=== PATIENT | female | born 1970 | race Caucasian/White ===

== ENCOUNTER 2018-06-19 06:42 | Inpatient (IN) ==
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
[2018-06-19] MEDS ORDERED: Ringers Solution, Lactated 1,000 ML IVC SCH (07:15)
[2018-06-19] MEDS ORDERED: Dexamethasone 4 MG/ML VIAL ONE (07:22)
[2018-06-19] MEDS ORDERED: *HR* Midazolam HCl 2 MG/2 ML VIAL ONE (07:22)
[2018-06-19] MEDS ORDERED: Neostigmine Methylsulfate 3 MG/3 ML SYRINGE ONE (07:22)
[2018-06-19] MEDS ORDERED: *HR* Propofol 200 MG/20 ML VIAL IVP ONE ×2 (07:22→10:42)
[2018-06-19] MEDS ORDERED: Lidocaine -MPF 4% 5 ML AMPUL ONE (07:22)
[2018-06-19] MEDS ORDERED: Lidocaine -MPF 2% 2 ML VIAL ONE (07:22)
[2018-06-19] MEDS ORDERED: *HR* Succinylcholine 200 MG/10 ML VIAL IVP ONE (07:22)
[2018-06-19] MEDS ORDERED: *HR* FentaNYL (PF) 100 MCG/2 ML VIAL ONE (07:22)
[2018-06-19] MEDS ORDERED: Ondansetron 4 MG/2 ML VIAL ONE (07:22)
[2018-06-19] MEDS ORDERED: *HR* Rocuronium Bromide 50 MG/5 ML VIAL ONE ×2 (07:24→09:37)
--- NOTE | 2018-06-19 07:27 | History & Physical Report ---
Date of Encounter: 06/19/18 Time of Encounter: 07:20 24 Hour HP Update - Instructions Instructions: If the History and Physical is less than 30 days old and was completed prior to A.M. admission and or procedure and has NOT been updated on calendar day of procedure please complete this update prior to performing procedure. - Update Patient reports changes in Medical Condition: No Changes in examination, assessment, or condition: No Changes in Medication: No Preop tests/diagnostics Reviewed: Yes Surgery Remains Indicated: Yes Consent for Planned Operative Procedure(s) Verified: Yes - Pre-Operative Checklist Preoperative Checklist Indicated: Yes Prophylactic Antibiotic Ordered: Yes Home Medications Include Beta Broderick: No Beta Broderick Taken Today (Day of Surgery): No Beta Broderick Taken Yesterday (Day Prior to Surgery): No Is VTE Prophylaxis Indicated?: Yes
[2018-06-19] MEDS ORDERED: *HR* Morphine Sulfate/PF 10 MG/10 ML AMPUL ONE (07:38)
[2018-06-19] MEDS ORDERED: Bupivacaine-MPF 0.25% 10 ML VIAL ONE ×4 (07:39→11:42)
[2018-06-19] MEDS ORDERED: *HR* PHENYLEPHRINE 1,000 MCG/10 ML SYRINGE IVP ONE (07:45)
[2018-06-19] MEDS ORDERED: Ertapenem 1,000 MG in 0.9 % Sodium Chloride Mini Bag 100 ML IVPB ONE (08:00)
--- NOTE | 2018-06-19 09:12 | Anesthesia Procedures ---
Date of Encounter: 06/19/18 Time of Encounter: 08:15 Procedures: Anesthesia - Epidural/Spinal Patient ID/Chart reviewed: Yes Patient examined: Yes Consent Obtained: Yes Supplemental Oxygen: Nasal Cannula Supplemental Oxygen Rate (L/min): 2 Sedation: Versed (mg): 2 Sedation: Fentanyl (mcg): 100 Site Prep: Aseptic Technique, Sterile prep and drape, Povidone-Iodine 1% Patient position: upright Local Anesthetic: Lidocaine 1% Amount of Local Anesthetic used: 3 Touhy Needle Gauge: 18 Touhy Needle Depth (cm): 7 Catheter Depth at Skin (cm): 16 Test Dose (1.5% Lido + Epi): Volume given (mls): 0 (2.5 ML ) Test Dose Result: Negative Loading Dose: 0.25% Marcaine (mls): 0 (5/5) Loading Dose Administered: Thru Catheter Catheter Secured in Place: Tegaderm, Tape Interspace Used: L3-L4 Loss of Resistance (MARIBEL): Yes Blood: No CSF: No Paresthesia: No Procedure: PIV PATENT, PREHYDRATED, STERILE PREP AND DRAPE, LIDO 1% FOR LOCAL. TOUGHY 18G TO L3-L4. MARIBEL AT 7CM WITH SALINE. 20G EPIDURAL CATHETHER INSERTED AT 0815. SMOOTHLY WITHOUT DIFFICULTY. SECURED AT 16/17. NEG HEME, NEG CSF, NEG PARATHESIA. NEGATIVE TEST DOSE AT 0817. 2.5ML -1.5% LIDO+EPI 1:200K . PATIENT PLACED IN SUPINE POSITION. EPIDURAL LOADING DOSE GIVEN-BUPIVICAINE 0.25% 5ML VSS. AFTER 10 MINUTES 5ML BUPIV 0.25% VSS. DOSING EVERY 30MINUTES WITH 3ML OF BUPIOVICAINE 0.25%. Vitals + FHT's: Vital Signs - Last 8 Hours Temp Pulse Resp BP Pulse Ox 06/19/18 07:02 98.0 F 96 18 132/93 95 Intake and Output 06/18/18 06/19/18 06/19/18 23:59 07:59 15:59 Other: Weight 101.151 kg Patient Weight 06/19/18 23:59 Weight 101.151 kg
[2018-06-19] MEDS ORDERED: Ondansetron 4 MG/2 ML VIAL IVP PRN ×2 (09:55→13:12)
[2018-06-19] MEDS ORDERED: Ringers Solution, Lactated 500 ML IVC ONE (11:30)
[2018-06-19] MEDS ORDERED: Ropivacaine/PF 0.2% 500 MG/250 ML INFUS..BTL EP SCH (11:30)
--- NOTE | 2018-06-19 11:33 | Operative Note ---
Date of procedure: 06/19/18 Pre-op diagnosis: Refractory/recurrent sigmoid diverticulitis Post-op diagnosis: same Procedure: Exploratory celiotomy, sigmoid colectomy with stapled EEA anastomosis, incidental appendectomy, intraoperative rigid sigmoidoscopy Complications: None apparent Anesthesia: GETA, epidural Surgeon: Skyler Zaragoza Was there an pastry assistant present: No Estimated blood loss (cc): 100 IV fluids (cc): 1,500 Specimen: sigmoid colon; appendix and anastomotic rings Condition: stable Disposition: PACU Procedure in Detail: Brief history: 48-year-old female presents today to undergo open sigmoid colectomy for recurrent/refractory diverticulitis. Complete history and physical available for inspection. Technique: The patient was brought to the operating room where she was seated on the procedure table. The patient was appropriately identified as to person and procedure. The accuracy of this information was confirmed by the patient and procedure team. An epidural catheter was established by [facility]. The patient was then placed supine on the procedure table. The patient was intubated and anesthetized under the supervision of Dr. Tai Lane. Once the airway was secured, the patient was placed in low lithotomy position using yellowfin stirrups. The perineum was prepped with Betadine, a Hair catheter inserted. The anterior abdomen was prepped with chlorhexidine and draped in the usual sterile fashion. A midline incision was made with a #10 scalpel beginning cephalad to the umbilicus extending to the pubic tubercle. Dissection was extended to the fascia. Bleeding points were controlled with electrocautery. The fascia was then incised and the abdomen entered atraumatically. Exposure was facilitated with the self-retaining Omni tract retractor. The abdomen was examined. Liver and gallbladder and stomach appeared to be grossly normal. And small bowel demonstrated no obvious abnormalities. The small bowel was cephalad with the Omni-Tract retractor. The cecum demonstrated no abnormalities, a normal-appearing appendix was identified. The mesoappendix was divided using an Ethilon Enseal dissector. The appendix was transected with the aid of an Ethicon TX 60 mm stapler. The transverse colon appeared normal as did the descending colon. The sigmoid colon demonstrated minimal diverticular disease without obvious inflammation. No pericolonic inflammation or abscess was identified. The sigmoid was mobilized medially by incising the lateral peritoneal reflection along the white line of Toldt. The dissection extended into the pelvis as well as cephalad along the lateral peritoneal reflection. The distal sigmoid was skeletonized approximately 10 cm from the anal verge and transected with an Ethicon 60 mm stapler. The mesentery was transected using the Ethicon Enseal dissector. The left colic vessels were divided between curved hemostats and ligated with 2-0 silk. A point on the distal descending colon was selected and skeletonized. There was no significant diverticular disease involving this segment. A purse-string device was used to divide the distal transverse colon. The sigmoid colon was removed from the field. The descending colon was measured to 29 mm using an EEA sound. This allowed me to select a 29 mm ECS EEA stapler. The EEA anvil was placed in the descending colon with the pursestring secured. It was necessary to mobilize the descending colon by extending the dissection cephalad along the lateral peritoneal reflection. This would allow a tension-free stapled EEA anastomosis to be completed. The surgeon then approached the peritoneum. A 29 EEA sound was passed rectally followed by the 29 mm ECS EEA stapler. An end to end stapled anastomosis was completed. 2 intact rings anastomotic rings were recovered. Rigid sigmoidoscope was then introduced rectally and advanced to the anastomosis. An intact stapled anastomosis was visualized. The pelvis was filled with saline. Air was insufflated through the rigid sigmoidoscope which demonstrated intact anastomosis as no "string of bubbles" was evident during the insufflation. The colon was decompressed, the rigid sigmoidoscope removed. The abdomen was irrigated with warm sterile saline which was evacuated with suction device. Lausier was then accomplished in layers. The peritoneum was closed with running interlocking 0 Vicryl. The midline fascia was approximated with interrupted [id number] 0 Vicryl. The subcutaneous tissue was approximated with running interlocking 3-0 Vicryl. The skin edges approximated with gio. Dry sterile dressings were applied. The patient was taken to recovery in stable condition. Needle, sponge, and instrument counts were correct at the close of the case. Specimen submitted to pathology: 1)Sigmoid colon; 2)anastomotic rings with the the appendix. The proximal anastomotic ring was designated with a silk suture.
[2018-06-19] MEDS ORDERED: Epidural Premix (fent/bupiv) 110 ML EP SCH (11:45)
--- NOTE | 2018-06-19 12:18 | Anesthesia Evaluation Post Op ---
Date of Encounter: 06/19/18 Time of Encounter: 12:17 - Vital Signs Vital Signs: Vital Signs/O2 Sat, Most Current Temp Pulse Resp BP Pulse Ox 98.1 F 97 16 114/75 94 06/19/18 12:16 06/19/18 12:16 06/19/18 12:16 06/19/18 12:16 06/19/18 12:16 - Lungs Lungs: Clear Ascult./Percussion - Airway Airway: Non-obstructed - Cardiovascular Regular Rate - Mental Status Mental Status: Alert & Oriented, Answers Appropriately - Pain Pain Scale: 6 (sleeping) Pain Scale used: Numeric (1 - 10) - Nausea Vomiting Nausea Vomiting: Not Present - Hydration Hydration: NPO, Hair catheter - Discharge PostOp Status: Transfer Patient to floor
[2018-06-19] MEDS ORDERED: 0.9 % Sodium Chloride 500 ML IVC PRN (13:12)
[2018-06-19] MEDS ORDERED: Naloxone 0.4 MG/ML INJ IVP PRN (13:12)
[2018-06-19] MEDS ORDERED: *HR* Promethazine 25 MG/ML VIAL IVP PRN (13:12)
[2018-06-19] MEDS: Ringers Solution, Lactated 1,000 ML IVC SCH (17:12)
[2018-06-19] MEDS ORDERED: Acetaminophen 325 MG TABLET PO ONE (17:36)
[2018-06-19] MEDS: Epidural Premix (fent/bupiv) 110 ML EP SCH (19:42)
[2018-06-20] MEDS: Ringers Solution, Lactated 1,000 ML IVC SCH (03:06)
[2018-06-20] MEDS: Epidural Premix (fent/bupiv) 110 ML EP SCH (05:06)
[2018-06-20 05:26] LABS: Basophils % 0.2 %; Eosinophils % 0.2 %; Hematocrit 37.9 % (35.3-44.9); Hemoglobin 12.7 g/dL (11.5-15.4); Immature Granulocytes % 0.6 % (0-4); Lymphocytes # 2.2 K/mcL (0.6-4.6); Lymphocytes % 19.6 %; Mean Corpuscular HGB Conc 33.5 g/dL (31.6-35.5); Mean Corpuscular Hemoglobin 29.7 pg (28.0-33.3); Mean Corpuscular Volume 88.6 fL (83.0-100.0); Mean Platelet Volume 9.5 fL (9.4-12.4); Monocytes # 0.8 K/mcL (0.0-1.3); Neutrophils # 8.2 K/mcL (1.6-8.9); Platelet Count 227 K/mcL (140-400); Red Blood Count 4.28 M/mcL (3.82-4.97); Red Cell Distribution Width 14.4 % (11.5-14.5); Segmented Neutrophils % 72.4 %
[2018-06-20 05:41] LABS: BUN/Creatinine Ratio 12 (6-26); Blood Urea Nitrogen 8 mg/dL (6-20); Calcium 8.7 mg/dL (8.6-10.3); Carbon Dioxide 27 mEq/L (23-29); Chloride 104 mEq/L (98-107); Glucose 180 mg/dL (70-105); Osmolality,Calculated 287 (280-300); Potassium 3.7 mEq/L (3.5-5.1); Sodium 137 mEq/L (136-145); eGFR For Non-African Americans > 60 (> 60)
[2018-06-20] MEDS: Pantoprazole 40 MG VIAL IVP SCH (09:43)
--- NOTE | 2018-06-20 11:20 | General Surgery Progress Note ---
Date of Encounter: 06/20/18 Time of Encounter: 11:15 Subjective Narrative: General Surgery - POD #1 Patient c/o pain; no fever, chills, N/V. Also complaining of headache. Tachycardia through the night but currently pulse 88 and regular; BP 103/70, respirations 14, SPO2 on room air 94-95% Lungs: Clear to auscultation no obvious pain on deep inspiration Abdomen: Soft, quiet with very few bowel sounds. Midline incision with minimal ecchymoses but otherwise clean and dry Hair: Clear pale yellow urine; output approximately 1300 mL so far today Labs: White count 11.4, hemoglobin 12.7, hematocrit 37.9. Platelet count 227, 000; differential within normal limits Electrolytes, BUN, creatinine within normal limits Accu-Cheks - 170s to 190s. Strong family history of diabetes Operative pathology pending Impression: Postoperative day #1, status post sigmoid colectomy with stapled EEA anastomosis and incidental appendectomy Acceptable postoperative status Plan: Discuss increasing epidural analgesia with anesthesia Continue nothing by mouth Maintain Hair due to epidural analgesia with anticipated bladder dysfunction Encourage activity out of bed Will allow Tylenol by mouth as needed for headache Check hemoglobin A1c Objective Vital Signs - Last 8 Hours Temp Pulse Resp BP Pulse Ox 06/20/18 05:26 98.4 F 88 14 103/70 94 Intake and Output 06/19/18 06/20/18 06/20/18 23:59 07:59 15:59 Intake Total 240 / 240 1000 / 1000 0 / 0 Output Total 950 / 950 1000 / 1000 300 / 300 Balance -710 / -710 0 / 0 -300 / -300 Intake: IV Fluids 1000 / 1000 Lactated Ringers 1,000 ML @ 100 1000 / 1000 mls/hr IVC .Q10H [facility] Rx#: [id number] Oral 240 / 240 0 / 0 0 / 0 Output: Catheter 950 / 950 1000 / 1000 300 / 300 Other: Weight 102.8 kg Blood Glucose* 184 172 Patient Weight 06/20/18 23:59 Weight 102.8 kg - Labs 06/20/18 05:04 06/20/18 05:04 Diabetes panel 06/20/18 Range/Units 05:04 Sodium 137 (136-145) mEq/L Potassium 3.7 (3.5-5.1) mEq/L Chloride 104 (98-107) mEq/L Carbon Dioxide 27 (23-29) mEq/L BUN 8 (6-20) mg/dL Creatinine 0.68 (0.60-1.20) mg/dL Glucose 180 H (70-105) mg/dL Calcium 8.7 (8.6-10.3) mg/dL Calcium panel 06/20/18 Range/Units 05:04 Calcium 8.7 (8.6-10.3) mg/dL Pituitary panel 06/20/18 Range/Units 05:04 Sodium 137 (136-145) mEq/L Potassium 3.7 (3.5-5.1) mEq/L Chloride 104 (98-107) mEq/L Carbon Dioxide 27 (23-29) mEq/L BUN 8 (6-20) mg/dL Creatinine 0.68 (0.60-1.20) mg/dL Glucose 180 H (70-105) mg/dL Calcium 8.7 (8.6-10.3) mg/dL Adrenal panel 06/20/18 Range/Units 05:04 Sodium 137 (136-145) mEq/L Potassium 3.7 (3.5-5.1) mEq/L Chloride 104 (98-107) mEq/L Carbon Dioxide 27 (23-29) mEq/L BUN 8 (6-20) mg/dL Creatinine 0.68 (0.60-1.20) mg/dL Glucose 180 H (70-105) mg/dL Calcium 8.7 (8.6-10.3) mg/dL Consult Discharge Plan - Plan Referrals: Meeta Ndiaye CNP [Primary Care Provider] - Skyler Zaragoza MD [Non-Partnered Physician] -
[2018-06-20] MEDS ORDERED: Acetaminophen 325 MG TABLET PO PRN (11:21)
[2018-06-20] MEDS ORDERED: *HR* Morphine 30 MG/ 30 ML PCA IVC PRN ×2 (12:25→16:36)
--- NOTE | 2018-06-20 12:36 | Anesthesia Progress Note ---
Date of Encounter: 06/20/18 Time of Encounter: 12:00 Anesthesia Note - Note Note: called to pt room for complaints of pain level 10. states pain level was 7 out of PACU. consulted Dr Bragg. Epidural catheter removed blue tip intact. Ese LUIS at bedside. Epidural bag 75 ml wasted with Ese LUIS present. Dr. Zaragoza notified per SOIL SCIENCE TECHNICAL OFFICER of discontinued epidural catheter. 06/20/18 12:33
[2018-06-20] MEDS: D5% in 0.45% NACL 1,000 ML IVC SCH (13:31)
[2018-06-20] MEDS: *HR* Heparin 5,000 UNIT/ML VIAL SQ SCH (17:42)
--- NOTE | 2018-06-20 17:42 | General Surgery Progress Note ---
Date of Encounter: 06/20/18 Time of Encounter: 17:31 Subjective Patient reports: still having pain Narrative: General Surgery - POD #1 Patient continues to c/o pain. Epidural analgesia discontinued earlier today by [facility]. DIETARY WORKER morphine ineffective. Despite complaints of pain and administration of fairly significant narcotic analgesia - the patient remains hemodynamically stable Afebrile, 98.0; pulse 95 (range 95-100); respiratory rate 18 and unlabored; blood pressure 138/92 to 152/92; SPO2 on room air 92% Lungs clear to auscultation, no obvious pain and deep inspiration Abdomen: Soft, quiet. No obvious pain elicited during auscultation or palpation of the abdomen. No rebound. Impression: post op pain not effectively relieved by Epidural though since discontinuation of the Epidural, pain described as increased. Morphine DIETARY WORKER ineffective. Dilaudid and Percocet(oxycodone ?) cause severe N/ V. Patient tolerates Demerol - discussed with [facility] - DIETARY WORKER demerol available Plan: DIETARY WORKER Demerol until bowel function sufficiently restored to initiate oral meds. Objective Vital Signs - Last 8 Hours Temp Pulse Resp BP Pulse Ox 06/20/18 15:30 98 F 95 18 152/92 92 06/20/18 14:00 98.2 F 100 18 138/92 92 06/20/18 13:00 98.2 F 95 20 135/86 93 Intake and Output 06/20/18 06/20/18 06/20/18 07:59 15:59 23:59 Intake Total 1000 / 1000 1100 / 1100 Output Total 1000 / 1000 400 / 400 Balance 0 / 0 700 / 700 Intake: IV Fluids 1000 / 1000 1100 / 1100 Lactated Ringers 1,000 ML @ 100 1000 / 1000 1000 / 1000 mls/hr IVC .Q10H [facility] Rx#: [id number] Oral 0 / 0 0 / 0 Output: Catheter 1000 / 1000 400 / 400 Other: Weight 102.8 kg Blood Glucose* 172 Patient Weight 06/20/18 23:59 Weight 102.8 kg - Labs 06/20/18 05:04 06/20/18 05:04 Diabetes panel 06/20/18 Range/Units 05:04 Sodium 137 (136-145) mEq/L Potassium 3.7 (3.5-5.1) mEq/L Chloride 104 (98-107) mEq/L Carbon Dioxide 27 (23-29) mEq/L BUN 8 (6-20) mg/dL Creatinine 0.68 (0.60-1.20) mg/dL Glucose 180 H (70-105) mg/dL Calcium 8.7 (8.6-10.3) mg/dL Calcium panel 06/20/18 Range/Units 05:04 Calcium 8.7 (8.6-10.3) mg/dL Pituitary panel 06/20/18 Range/Units 05:04 Sodium 137 (136-145) mEq/L Potassium 3.7 (3.5-5.1) mEq/L Chloride 104 (98-107) mEq/L Carbon Dioxide 27 (23-29) mEq/L BUN 8 (6-20) mg/dL Creatinine 0.68 (0.60-1.20) mg/dL Glucose 180 H (70-105) mg/dL Calcium 8.7 (8.6-10.3) mg/dL Adrenal panel 06/20/18 Range/Units 05:04 Sodium 137 (136-145) mEq/L Potassium 3.7 (3.5-5.1) mEq/L Chloride 104 (98-107) mEq/L Carbon Dioxide 27 (23-29) mEq/L BUN 8 (6-20) mg/dL Creatinine 0.68 (0.60-1.20) mg/dL Glucose 180 H (70-105) mg/dL Calcium 8.7 (8.6-10.3) mg/dL Consult Discharge Plan - Plan Referrals: Meeta Ndiaye CNP [Primary Care Provider] - Skyler Zaragoza MD [Non-Partnered Physician] -
[2018-06-20] MEDS: MEPERIDINE IVC PRN (20:03)
[2018-06-21] MEDS: Ringers Solution, Lactated 1,000 ML IVC SCH (00:23)
[2018-06-21 04:26] LABS: Basophils # 0.1 K/mcL (0.0-0.2); Basophils % 0.4 %; Eosinophils % 0.1 %; Hematocrit 38.2 % (35.3-44.9); Hemoglobin 12.5 g/dL (11.5-15.4); Immature Granulocytes % 1.1 % (0-4); Lymphocytes # 1.8 K/mcL (0.6-4.6); Lymphocytes % 12.3 %; Mean Corpuscular HGB Conc 32.7 g/dL (31.6-35.5); Mean Corpuscular Hemoglobin 28.8 pg (28.0-33.3); Mean Platelet Volume 9.3 fL (9.4-12.4); Monocytes # 0.9 K/mcL (0.0-1.3); Monocytes % 6.1 %; Neutrophils # 11.4 K/mcL (1.6-8.9); Platelet Count 230 K/mcL (140-400); Red Blood Count 4.34 M/mcL (3.82-4.97); Red Cell Distribution Width 14.4 % (11.5-14.5)
[2018-06-21] MEDS: *HR* Heparin 5,000 UNIT/ML VIAL SQ SCH ×2 (04:39→17:49)
[2018-06-21] MEDS: D5% in 0.45% NACL 1,000 ML IVC SCH ×2 (04:41→20:40)
[2018-06-21 07:21] LABS: Estimated Average Glucose 186 mg/dl; Hemoglobin A1C 8.1 %
[2018-06-21] MEDS: Pantoprazole 40 MG VIAL IVP SCH (09:20)
--- NOTE | 2018-06-21 12:08 | General Surgery Progress Note ---
Date of Encounter: 06/21/18 Time of Encounter: 11:47 Subjective Patient reports: feels better, still having pain, pain is less Narrative: General Surgery - POD #2 Pain controlled with TEENAGE BABYSITTER meperidine. The patient has remained afebrile, hemodynamically stable, pulse 82, respirations 16, blood pressure 111/75. SPO2 currently on 2 L per nasal cannula 94% Lungs: Clear; no abdominal pain and deep inspiration Cardiac: Regular rate, no appreciable murmurs. Patient was tachycardic through the night as high as 114 but this appears to be pain mediated and with pain control has resolved Abdomen: Soft with astrid-incisional tenderness as expected. The midline incision appears intact; no palpable fascial defects. Few, if any, bowel sounds Urine output: 2350 mL for calendar day 06/20/18; 800 mL so far today; Hair catheter removed. The patient has not voided since removal of the Hair. Laboratories: Leukocytosis has increased to 14.2 with 11.4% neutrophils; suspect this is due to the patient's pain but will continue to monitor Hemoglobin stable at 12.5 with hematocrit 38.2. Platelet count 230,000. Hemoglobin A1c 8.1 consistent with a diagnosis of diabetes mellitus. The patient has a strong family history of diabetes. Operative pathology: Sigmoid colon - diverticulosis/diverticulitis Benign appendix; unremarkable anastomotic rings Impression: Recurrent/refractory sigmoid diverticulitis Postoperative day #2, status post sigmoid colectomy with stapled EEA anastomosis and incidental appendectomy. Postoperative pain control has been difficult to achieve, however, currently controlled with TEENAGE BABYSITTER Demerol Postoperative leukocytosis New diagnosis of diabetes mellitus Objective Vital Signs - Last 8 Hours Temp Pulse Resp BP Pulse Ox 06/21/18 10:44 97.6 F 82 16 111/75 94 06/21/18 07:30 97.9 F 92 15 130/85 93 06/21/18 04:20 97.9 F 99 14 125/84 92 Intake and Output 06/20/18 06/21/18 06/21/18 23:59 07:59 15:59 Intake Total 0 / 0 1240 / 1240 376 / 376 Output Total 950 / 950 800 / 800 0 / 0 Balance -950 / -950 440 / 440 376 / 376 Intake: IV Fluids 1000 / 1000 376 / 376 D5% And 0.45% Nacl 1000 Ml Bag 1000 / 1000 376 / 376 1,000 ML @ 75 mls/hr IVC . [id number] [facility] Rx#:[id number] Oral 0 / 0 240 / 240 0 / 0 Output: Urine 0 / 0 Catheter 950 / 950 800 / 800 Other: # Bowel Movements 0 0 Weight 103.1 kg Blood Glucose* 208 177 - Labs 06/21/18 04:06 06/21/18 04:06 Diabetes panel 06/21/18 06/21/18 Range/Units 04:06 04:06 Potassium 3.7 (3.5-5.1) mEq/L Hemoglobin A1c 8.1 H ( - 5.6) % Pituitary panel 06/21/18 Range/Units 04:06 Potassium 3.7 (3.5-5.1) mEq/L Adrenal panel 06/21/18 Range/Units 04:06 Potassium 3.7 (3.5-5.1) mEq/L - VTE Documentation of Mechanical Device: Intermittent pneumatic compression device Consult Discharge Plan - Plan Referrals: Meeta Ndiaye CNP [Primary Care Provider] - Skyler Zaragoza MD [Non-Partnered Physician] -
[2018-06-21] MEDS ORDERED: D5% in Water 1,000 ML IVC PRN (12:19)
[2018-06-21] MEDS ORDERED: Dextrose Gel 15 GM/37.5 ML TUBE PO PRN (12:19)
[2018-06-21] MEDS ORDERED: *HR* Dextrose 50 % in Water (Syg) 50 ML SYRINGE IVP PRN (12:19)
[2018-06-21] MEDS: MEPERIDINE IVC PRN (15:31)
[2018-06-21] MEDS: Insulin LISPRO 300 UNITS/3 ML VIAL SQ SCH (17:48)
[2018-06-22] MEDS: Insulin LISPRO 300 UNITS/3 ML VIAL SQ SCH ×4 (00:14→17:42)
[2018-06-22 03:41] LABS: Basophils % 0.3 %; Eosinophils # 0.2 K/mcL (0.0-0.6); Eosinophils % 1.8 %; Hematocrit 36.2 % (35.3-44.9); Hemoglobin 11.9 g/dL (11.5-15.4); Immature Granulocytes % 0.7 % (0-4); Immature Platelets 3.5 % (1.1-6.1); Lymphocytes # 2.8 K/mcL (0.6-4.6); Lymphocytes % 24.1 %; Mean Corpuscular HGB Conc 32.9 g/dL (31.6-35.5); Mean Corpuscular Hemoglobin 29.9 pg (28.0-33.3); Mean Platelet Volume 9.6 fL (9.4-12.4); Monocytes # 0.6 K/mcL (0.0-1.3); Monocytes % 5.4 %; Neutrophils # 7.9 K/mcL (1.6-8.9); Platelet Count 218 K/mcL (140-400); Red Blood Count 3.98 M/mcL (3.82-4.97); Red Cell Distribution Width 14.3 % (11.5-14.5); Segmented Neutrophils % 67.7 %
[2018-06-22] MEDS: *HR* Heparin 5,000 UNIT/ML VIAL SQ SCH ×2 (06:01→18:45)
[2018-06-22] MEDS: Pantoprazole 40 MG VIAL IVP SCH (10:02)
[2018-06-22] MEDS: MEPERIDINE IVC PRN (13:03)
[2018-06-22] MEDS: D5% in 0.45% NACL 1,000 ML IVC SCH ×2 (13:09→23:45)
[2018-06-22] MEDS ORDERED: MEPERIDINE IVC PRN (18:22)
--- NOTE | 2018-06-22 19:20 | General Surgery Progress Note ---
Date of Encounter: 06/22/18 Time of Encounter: 18:30 Subjective Patient reports: no new complaints, feels better Narrative: General Surgery - POD #3 Pain controlled with TRACER LATHE SET UP OPERATOR Meperidine. The patient has used considerably less narcotic analgesia in the last 24 hours Afebrile, currently 98.0; pulse 78-82; respirations 16, blood pressure 112/ 60. SPO2 on room air 95%. Lungs: Clear; better inspiratory effort with less abdominal pain Cardiac: Regular rate, no appreciable murmurs Abdomen: Obese, soft, less incisional tenderness. The midline incision is intact and healing well. Stable astrid-incisional ecchymoses. No surrounding erythema or cellulitis. Active bowel sounds with passage of flatus. Hair catheter removed; patient voiding without difficulty Laboratories: Leukocytosis has diminished to 11.6; differential within normal limits; neutrophilia also resolved Impression: Postoperative day #3; status post sigmoid colectomy with stapled EEA anastomosis and incidental appendectomy. Patient doing well; postoperative pain control Bowel function returning; passing flatus. Newly diagnosed diabetes -Accu-Cheks [phone] Plan: Diminish TRACER LATHE SET UP OPERATOR Dilaudid Allow clear liquids. If tolerated will advance diet and begin oral analgesics. Objective Vital Signs - Last 8 Hours Temp Pulse Resp BP Pulse Ox 06/22/18 15:54 98 F 78 16 112/60 93 06/22/18 11:34 98.2 F 80 16 106/71 93 Intake and Output 06/22/18 06/22/18 06/22/18 07:59 15:59 23:59 Intake Total 180 / 180 1000 / 1000 Output Total 700 / 700 150 / 150 Balance -520 / -520 850 / 850 Intake: IV Fluids 1000 / 1000 D5% And 0.45% Nacl 1000 Ml Bag 1000 / 1000 1,000 ML @ 60 mls/hr IVC . [id number] [facility] Rx#:[id number] Oral 180 / 180 0 / 0 Output: Urine 700 / 700 150 / 150 Other: Meal Lunch NPO Percent of Meal Consumed 0% # Bowel Movements 0 Weight 102.9 kg Blood Glucose* 172 172 178 Patient Weight 06/22/18 23:59 Weight 102.9 kg - Labs 06/22/18 03:25 06/21/18 04:06 - VTE Documentation of Mechanical Device: Intermittent pneumatic compression device Consult Discharge Plan - Plan Referrals: Senthil,Meeta K, PROFESSOR OF COUNSELING [Primary Care Provider] - Skyler Zaragoza MD [Non-Partnered Physician] -
[2018-06-23] MEDS: Insulin LISPRO 300 UNITS/3 ML VIAL SQ SCH ×5 (00:08→23:59)
[2018-06-23] MEDS: *HR* Heparin 5,000 UNIT/ML VIAL SQ SCH ×2 (05:55→17:37)
[2018-06-23] MEDS: Pantoprazole 40 MG VIAL IVP SCH (08:16)
--- NOTE | 2018-06-23 09:51 | General Surgery Progress Note ---
Date of Encounter: 06/23/18 Time of Encounter: 09:30 Subjective Patient reports: no new complaints Narrative: General Surgery - POD #4 Patient feeling well, voicing no new complaints but with further discussion admits to some crampy abdominal pain. Afebrile; hemodynamically stable, pulse 81, respirations 16, blood pressure 113/63. Lungs: Clear bilaterally; no abdominal pain on deep inspiration Cardiac: Regular rate, no appreciable murmurs Abdomen: Soft, minimal incisional tenderness but incision intact and healing well. Active bowel sounds. Patient continues to pass flatus. Tolerating clear liquids; no nausea or vomiting Urine output 950 mL for the last 24 hours; 750 mL so far today. Impression: Postoperative day #4, status post sigmoid colectomy for recurrent/ refractory sigmoid diverticulitis Newly diagnosed diabetes (hemoglobin A1c 8.1) - current Accu-Cheks [phone] Acceptable postoperative status Plan: Advance diet to full liquids Encourage activity out of bed Continue THIRD STEEL POURER Demerol due to patient's anxiety about recurrent pain and limited oral options related to the patient's allergies and intolerance of the usual narcotic analgesics. Objective Vital Signs - Last 8 Hours Temp Pulse Resp BP Pulse Ox 06/23/18 07:37 98.2 F 81 16 113/63 92 06/23/18 05:50 98.2 F 82 15 108/69 94 Intake and Output 06/22/18 06/23/18 06/23/18 23:59 07:59 15:59 Intake Total 120 / 120 120 / 120 300 / 300 Output Total 100 / 100 750 / 750 Balance 20 / 20 -630 / -630 300 / 300 Intake: Oral 120 / 120 120 / 120 300 / 300 Output: Urine 100 / 100 750 / 750 Other: Meal NPO Blood Glucose* 178 158 - Labs 06/22/18 03:25 06/21/18 04:06 - VTE Documentation of Mechanical Device: Intermittent pneumatic compression device Consult Discharge Plan - Plan Referrals: Meeta Ndiaye CNP [Primary Care Provider] - Skyler Zaragoza MD [Non-Partnered Physician] -
[2018-06-23] MEDS: D5% in 0.45% NACL 1,000 ML IVC SCH (11:29)
[2018-06-24] MEDS: *HR* HYDROcodone/Acet 10/325 mg TABLET PO PRN ×2 (06:06→14:26)
[2018-06-24] MEDS: *HR* Heparin 5,000 UNIT/ML VIAL SQ SCH ×2 (06:07→18:39)
[2018-06-24] MEDS: Insulin LISPRO 300 UNITS/3 ML VIAL SQ SCH ×3 (06:08→18:39)
[2018-06-24 08:38] LABS: Basophils % 0.2 %; Eosinophils # 0.2 K/mcL (0.0-0.6); Eosinophils % 2.6 %; Hematocrit 34.2 % (35.3-44.9); Hemoglobin 11.2 g/dL (11.5-15.4); Lymphocytes # 2.9 K/mcL (0.6-4.6); Lymphocytes % 31.5 %; Mean Corpuscular HGB Conc 32.7 g/dL (31.6-35.5); Mean Corpuscular Hemoglobin 29.7 pg (28.0-33.3); Mean Corpuscular Volume 90.7 fL (83.0-100.0); Mean Platelet Volume 9.9 fL (9.4-12.4); Monocytes # 0.6 K/mcL (0.0-1.3); Monocytes % 6.4 %; Neutrophils # 5.4 K/mcL (1.6-8.9); Nucleated Red Blood Cells 0.3 /100 WBC (0); Platelet Count 247 K/mcL (140-400); Red Blood Count 3.77 M/mcL (3.82-4.97); Red Cell Distribution Width 14.4 % (11.5-14.5); Segmented Neutrophils % 58.3 %
[2018-06-24 08:56] LABS: BUN/Creatinine Ratio 5 (6-26); Blood Urea Nitrogen 3 mg/dL (6-20); Calcium 8.9 mg/dL (8.6-10.3); Carbon Dioxide 30 mEq/L (23-29); Chloride 104 mEq/L (98-107); Glucose 147 mg/dL (70-105); Osmolality,Calculated 289 (280-300); Potassium 3.2 mEq/L (3.5-5.1); Sodium 140 mEq/L (136-145); eGFR For Non-African Americans > 60 (> 60)
[2018-06-24] MEDS: Pantoprazole 40 MG VIAL IVP SCH (09:57)
[2018-06-24 10:17] VITALS: BP 123/76
--- NOTE | 2018-06-24 19:25 | General Surgery Progress Note ---
Date of Encounter: 06/24/18 Time of Encounter: 19:16 Subjective Patient reports: feels better, flatus, bowel movement Narrative: General Surgery - POD #5 Patient feeling well; complaining of pain ever since the Demerol has been discontinued but is obtaining sufficient control with Vicodin 10 mg It was necessary to discontinue IV therapy after the PICC infiltrated early this morning. The patient has remained afebrile with maximum temperature 99.0; pulse 84-92 , respirations 20 and unlabored, blood pressure stable 123/76. SPO2 on room air 93-97% Lungs: Clear, no obvious pain on deep inspiration Cardiac: Regular rate, no appreciable murmur Abdomen: Obese, soft, minimal incisional tenderness. Incision is intact and healing well. The patient is tolerating a regular diet without increased abdominal pain , nausea or vomiting. Patient moved her bowels earlier today Laboratories: White count 9.2, hemoglobin 11.2, hematocrit 34.2 (slightly below lower limits of normal likely due to perioperative fluids/dilution) H&H essentially stable. Differential within normal limits. Electrolytes notable for potassium of 3.2 Blood sugars is 143-158 Impression: Postoperative day #5, status post sigmoid colectomy with stapled EEA anastomosis; incidental appendectomy. Pathology: Sigmoid diverticulosis with recurrent/refractory diverticulitis; fibrous obliteration tip of the appendix Acceptable postoperative status. Patient with a fairly unremarkable postoperative course. Pain controlled with oral analgesics; tolerating regular diet and moving her bowels. Plan: Discharge home Regular diet PCP to begin evaluation and treatment for newly diagnosed diabetes Outpatient follow-up my office, 07/01/18 Instructions: Activity as tolerated; lifting limited to less than 20 pounds Follow-up with PCP regarding newly diagnosed diabetes Patient may shower, wash incision with soap and water Tylenol, ibuprofen, Motrin, Advil, Aleve, etc. as needed for pain Prescription for Vicodin 10/325, #20, one every 6 hours as needed for pain not relieved by [id number] medications Follow-up my office, 07/01/18. Patient to contact my office in the a.m. to make this appointment Objective Intake and Output 06/24/18 06/24/18 06/24/18 07:59 15:59 23:59 Intake Total 1200 / 1200 Output Total 0 / 0 Balance 1200 / 1200 Intake: Oral 1200 / 1200 Output: Urine 0 / 0 Other: Meal Lunch Percent of Meal Consumed 100% Stool Size Moderate Stool Consistency loose liquid Stool Color Brown # Voids 1 Blood Glucose* 158 - Labs 06/24/18 07:44 06/24/18 07:44 Diabetes panel 06/24/18 Range/Units 07:44 Sodium 140 (136-145) mEq/L Potassium 3.2 L (3.5-5.1) mEq/L Chloride 104 (98-107) mEq/L Carbon Dioxide 30 H (23-29) mEq/L BUN 3 L (6-20) mg/dL Creatinine 0.64 (0.60-1.20) mg/dL Glucose 147 H (70-105) mg/dL Calcium 8.9 (8.6-10.3) mg/dL Calcium panel 06/24/18 Range/Units 07:44 Calcium 8.9 (8.6-10.3) mg/dL Pituitary panel 06/24/18 Range/Units 07:44 Sodium 140 (136-145) mEq/L Potassium 3.2 L (3.5-5.1) mEq/L Chloride 104 (98-107) mEq/L Carbon Dioxide 30 H (23-29) mEq/L BUN 3 L (6-20) mg/dL Creatinine 0.64 (0.60-1.20) mg/dL Glucose 147 H (70-105) mg/dL Calcium 8.9 (8.6-10.3) mg/dL Adrenal panel 06/24/18 Range/Units 07:44 Sodium 140 (136-145) mEq/L Potassium 3.2 L (3.5-5.1) mEq/L Chloride 104 (98-107) mEq/L Carbon Dioxide 30 H (23-29) mEq/L BUN 3 L (6-20) mg/dL Creatinine 0.64 (0.60-1.20) mg/dL Glucose 147 H (70-105) mg/dL Calcium 8.9 (8.6-10.3) mg/dL - VTE Documentation of Mechanical Device: Intermittent pneumatic compression device Consult Discharge Plan - Plan Referrals: Meeta Ndiaye CNP [Primary Care Provider] - Skyelr Zaragoza MD [Non-Partnered Physician] -
--- NOTE | 2018-06-24 19:33 | Discharge Summary ---
Outpatient Proc Discharge Plan - Plan Additional Instructions: Regular diet; no concentrated sugars Activity as tolerated; no lifting more than 20 pounds Patient may shower, wash incision with soap and water Patient may drive as long as she is not taking narcotic analgesics and is able to brake without delay The patient to contact PCP regarding further evaluation/treatment/medications for newly diagnosed diabetes Follow-up my office, 07/01/18. Patient to call office in the a.m. to make this appointment Tylenol, ibuprofen, Motrin, Advil, Aleve, as needed for pain Prescription for Vicodin 10/325, #20, one every 6 hours as needed for pain not relieved by [id number] medications Prescriptions: HYDROcodone/Acet 10/325 mg [[place] 10-325 mg] 1 each PO Q6H PRN 5 Days #20 tablet PRN Reason: Pain Home Medications: Cetirizine HCl [Zyrtec] 10 mg PO DAILY 07/05/16 [History] Omeprazole [PriLOSEC] 20 mg PO DAILY 07/05/16 [History] Multivitamin [Multivitamins] 1 each PO DAILY 06/19/18 [History] Acetaminophen [Tylenol] 650 mg PO Q6HR PRN tablet 06/24/18 [Rx] HYDROcodone/Acet 10/325 mg [[place] 10-325 mg] 1 each PO Q6H PRN 5 Days #20 tablet 06/24/18 [Rx]
== END 2018-06-24 20:06 | disposition home or self-care (01) | DRG 330 ==
LOC: SAMDAY 06:42 → 3ANU 12:19
PROVIDERS: ADMIT Surgery; ATTEND Surgery